=== PATIENT | male | born 1965 | race Caucasian/White ===

== ENCOUNTER 2016-09-06 14:17 | Outpatient (CLI) | payer BC | END 2016-09-06 14:18 | disposition home or self-care (01) | DX: G47.8 Other sleep disorders (principal); R06.83 Snoring ==

== ENCOUNTER 2016-11-01 14:46 | Outpatient (CLI) | payer BC | END 2016-11-01 14:47 | disposition home or self-care (01) | DX: G47.33 Obstructive sleep apnea (adult) (pediatric) (principal) ==

== ENCOUNTER 2017-01-22 15:49 | Outpatient (CLI) | payer BC | END 2017-01-22 15:50 | disposition home or self-care (01) | LOC: SC 15:49 | PROVIDERS: ATTEND Nurse Practitioner Family | DX: G47.33 Obstructive sleep apnea (adult) (pediatric) (principal) | CPT/HCPCS: 99212; 99214 ==

== ENCOUNTER 2017-02-28 10:16 | Outpatient (CLI) | payer BC ==
[2017-02-28 17:59] LABS: ALBUMIN/GLOBULIN RATIO 1.6 (1.0-2.2); BILIRUBIN,TOTAL 0.5 mg/dL (0.2-1.0); BUN - BLOOD UREA NITROGEN 16 mg/dL (6-20); CALCIUM 8.6 mg/dL (8.5-10.3); CARBON DIOXIDE - CO2 26 mmol/L (21-32); CHLORIDE 103 mmol/L (101-111); CHOL/HDL RATIO 5.4 (<5.0); CHOLESTEROL 146 mg/dL; CREATININE 0.7 mg/dL (0.6-1.2); GFR - MDRD 120 (>89); GLUCOSE 272 mg/dL (70-100); HDL CHOLESTEROL 27 mg/dL; LDL/HDL RATIO 3.3 (<3.6); POTASSIUM 4.1 mmol/L (3.5-5.0); SODIUM 135 mmol/L (135-145); TOTAL PROTEIN 6.7 g/dL (6.7-8.2); TRIGLYCERIDES 151 mg/dL; VLDL CHOLESTEROL 30 mg/dL
[2017-02-28 18:00] LABS: HEMOGLOBIN A1C 1.01 g/dL
== END 2017-02-28 10:17 | disposition home or self-care (01) ==
LOC: LAB.F 10:16
PROVIDERS: ATTEND Physician Assistant Medical
DX: I10 Essential (primary) hypertension (principal); E78.5 Hyperlipidemia, unspecified
CPT/HCPCS: 36415; 80053; 80061; 83036

== ENCOUNTER 2017-03-07 15:55 | Outpatient (CLI) | payer BC | END 2017-03-07 15:56 | disposition home or self-care (01) | LOC: SC 15:55 | PROVIDERS: ATTEND Nurse Practitioner Family | DX: G47.33 Obstructive sleep apnea (adult) (pediatric) (principal); G47.00 Insomnia, unspecified | CPT/HCPCS: 99212; 99214 ==

== ENCOUNTER 2017-04-11 15:51 | Outpatient (CLI) | payer BC | END 2017-04-11 15:52 | disposition home or self-care (01) | LOC: SC 15:51 | PROVIDERS: ATTEND Nurse Practitioner Family | DX: G47.33 Obstructive sleep apnea (adult) (pediatric) (principal) | CPT/HCPCS: 99212; 99214 ==

== ENCOUNTER 2017-09-24 12:45 | Outpatient (CLI) | payer BC ==
[2017-09-24 18:01] LABS: HB2 TOTAL 14.7 g/dL; HEMOGLOBIN A1C 0.8 g/dL; HEMOGLOBIN A1C % 7.1 % (4.6-6.2)
== END 2017-09-24 12:46 | disposition home or self-care (01) ==
LOC: LAB.F 12:45
PROVIDERS: ATTEND Physician Assistant Medical
DX: E11.9 Type 2 diabetes mellitus without complications (principal)
CPT/HCPCS: 36415; 83036

== ENCOUNTER 2018-03-08 02:50 | Outpatient (CLI) | payer BC | END 2018-03-08 02:51 | disposition critical access hospital (66) | LOC: EMS 02:50 | PROVIDERS: ATTEND Surgery | DX: T39.312A Poisoning by propionic acid derivatives, intentional self-harm, initial encounter (principal); R46.4 Slowness and poor responsiveness; Y92.009 Unspecified place in unspecified non-institutional (private) residence as the place of occurrence of the external cause | CPT/HCPCS: A0425; A0427 ==

== ENCOUNTER 2018-03-08 03:29 | Observation (INO) | payer BC ==
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
[2018-03-08] MEDS ORDERED: SODIUM CHLORIDE 0.9% 1,000 ML IV ONE ×3 (03:43→09:47)
[2018-03-08 03:48] LABS: MUDS CUTOFF CONCENTRATIONS CUTOFF CONC BELOW:
[2018-03-08 04:06] LABS: AMPHETAMINE SCREEN,URINE NEGATIVE (NEGATIVE); BENZODIAZEPINES SCREEN, URINE NEGATIVE (NEGATIVE); COCAINE SCREEN URINE NEGATIVE (NEGATIVE); METHADONE SCREEN, URINE NEGATIVE (NEGATIVE); METHAMPHETAMINES SCREEN, URINE NEGATIVE (NEGATIVE); OPIATE SCREEN, URINE POSITIVE (NEGATIVE); OXYCODONE SCREEN, URINE NEGATIVE (NEGATIVE); PROPOXYPHENE SCREEN, URINE NEGATIVE (NEGATIVE); TRICYCLIC ANTIDEPRESSANT,URINE NEGATIVE (NEGATIVE)
[2018-03-08 04:07] LABS: BASOPHILS % (AUTO) 0.5 %; EOSINOPHILS % (AUTO) 1.1 %; HGB - HEMOGLOBIN 13.1 g/dL (14.0-18.0); LYMPHOCYTES # (AUTO) 0.9 10^3/uL (1.5-3.5); LYMPHOCYTES % (AUTO) 27.8 %; MEAN CORPUSCULAR HEMOGLOBIN 32.4 pg (27.0-31.0); MEAN CORPUSCULAR HGB CONC 34.7 g/dL (32.0-36.0); MEAN CORPUSCULAR VOLUME 93.4 fL (80.0-94.0); MEAN PLATELET VOLUME 8.3 fL (7.4-11.4); MONOCYTES # (AUTO) 0.2 10^3/uL (0.0-1.0); MONOCYTES % (AUTO) 6.8 %; NEUTROPHILS # (AUTO) 2.1 10^3/uL (1.5-6.6); NEUTROPHILS % (AUTO) 63.8 %; PLT - PLATELET COUNT 138 10^3/uL (130-450); RED BLOOD COUNT 4.04 10^6/uL (4.70-6.10); RED CELL DISTRIBUTION WIDTH 13.1 % (12.0-15.0); WHITE BLOOD COUNT 3.2 x10^3/uL (4.8-10.8)
[2018-03-08 04:26] LABS: ACETAMINOPHEN 34 ug/mL (10-30); ALBUMIN 4.2 g/dL (3.2-5.5); ALBUMIN/GLOBULIN RATIO 1.4 (1.0-2.2); ALKALINE PHOSPHATASE 80 IU/L (42-121); ALT ALANINE AMINOTRANSFERASE 77 IU/L (10-60); AST ASPARTATE AMINOTRANSFERASE 34 IU/L (10-42); BILIRUBIN,TOTAL 0.7 mg/dL (0.2-1.0); BUN - BLOOD UREA NITROGEN 14 mg/dL (6-20); CALCIUM 8.9 mg/dL (8.5-10.3); CARBON DIOXIDE - CO2 21 mmol/L (21-32); CHLORIDE 101 mmol/L (101-111); CREATININE 0.7 mg/dL (0.6-1.2); GFR - MDRD 119 (>89); GLUCOSE 294 mg/dL (70-100); LIPASE 32 U/L (22-51); SALICYLATE < 6.0 mg/dL; SODIUM 134 mmol/L (135-145); TOTAL PROTEIN 7.1 g/dL (6.7-8.2)
[2018-03-08] MEDS ORDERED: INSULIN REGULAR HUMAN 100 UNIT/1 ML 10 ML MDV IVP STA (06:11)
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
[2018-03-08] MEDS ORDERED: ONDANSETRON 4 MG/2 ML VIAL IVP PRN (12:05)
[2018-03-08] MEDS ORDERED: SODIUM CHLORIDE FLUSH 0.9% 10 ML SYRINGE IVP PRN (12:05)
[2018-03-08 13:26] LABS: ABG BASE EXCESS -5.3 mmol/L (-2.0-3.0); ABG HCO3 22.7 mmol/L (22.0-26.0); ABG OXYGEN SATURATION 92 % (94-98); ABG PCO2 55 mmHg (34-45); ABG PH 7.24 (7.35-7.45); ABG PO2 71 mmHg (80-100); ABG TCO2 24.4 MMOL/L (21.0-29.0); ALLEN TEST POSITIVE
[2018-03-08] MEDS ORDERED: NALOXONE 0.4 MG/ML VIAL IVP ONE (13:31)
[2018-03-08] MEDS: SODIUM CHLORIDE 0.9% 1,000 ML IV SCH (13:51)
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
[2018-03-08 14:49] LABS: ABG PCO2 55 mmHg (34-45); ABG PH 7.27 (7.35-7.45)
[2018-03-08 14:53] LABS: ABG BASE EXCESS -3.1 mmol/L (-2.0-3.0); ABG HCO3 24.5 mmol/L (22.0-26.0); ABG PO2 36 mmHg (80-100); ABG TCO2 26.2 MMOL/L (21.0-29.0)
[2018-03-08 14:54] LABS: ALLEN TEST POSITIVE
--- NOTE | 2018-03-08 15:13 | XRAY Report ---
Reason: sob, ams, Procedure Date: 03/08/2018 Accession Number: [id number] / [id number] Procedure: XR - Chest 1 View X-Ray CPT Code: 89705 FULL RESULT: EXAM: CHEST RADIOGRAPHY EXAM DATE: 03/08/2018 02:41 PM. CLINICAL HISTORY: Sob, ams. COMPARISON: 01/06/2013 chest x-ray TECHNIQUE: 1 view. FINDINGS: Lungs/Pleura: No focal opacities evident. No pleural effusion. No pneumothorax. Mediastinum: Within exam limitations, the cardiomediastinal contour is normal. Other: No acute findings compared with 01/06/2013 IMPRESSION: Negative portable chest. RAD[facility]
[2018-03-08 15:31] LABS: ABG PCO2 47 mmHg (34-45); ABG PH 7.29 (7.35-7.45)
[2018-03-08 15:32] LABS: ABG BASE EXCESS -4.3 mmol/L (-2.0-3.0); ABG HCO3 22.4 mmol/L (22.0-26.0); ABG OXYGEN SATURATION 96 % (94-98); ABG PO2 94 mmHg (80-100); ABG TCO2 23.8 MMOL/L (21.0-29.0); ALLEN TEST POSITIVE
[2018-03-08 16:02] LABS: ABG OXYGEN SATURATION 64 % (94-98)
[2018-03-08] MEDS: INSULIN ASPART 300 UNIT/3 ML PEN SUBQ SCH ×2 (16:29→21:02)
[2018-03-08] MEDS: SODIUM CHLORIDE FLUSH 0.9% 10 ML SYRINGE IVP SCH (16:47)
[2018-03-08 18:37] LABS: HB2 TOTAL 13.1 g/dL; HEMOGLOBIN A1C % 9.1 % (4.6-6.2)
--- NOTE | 2018-03-08 19:18 | PROVIDER PROGRESS NOTE ---
Hospitalist Cross-cover Note - Cross-Cover Note Cross-Cover Note: March 08, 2018 7:13 PM The patient was transferred to the unit because he was excessively sleepy during the day. He was felt to be snoring, possibly to have tended to protect his own airway. He would wake up with sternal rub. Go right back to sleep. We did a blood gas and his pH was 7.29, PCO2 47, and PO2 was 94. She had a mild metabolic acidosis with his hyperglycemia. His glycosylated hemoglobin ended up being 9.1%. Once he was in the ICU, he is slowly been waking up. By 630 this evening he is upright in bed, watching TV, and eating a full dinner. His temperature is 36.5 , pulse 108, blood pressure 152/97. He is breathing at 18 breaths a minute. 100% saturated on room air. He is a lean lanky white male. Alert and oriented to person place and time. Again, watching TV in controlling the remote quite nicely. Neck is supple. Lungs are clear to auscultation and percussion. PMI is normally placed. The abdomen is soft and nontender with normal bowel sounds. His extremities have no clubbing cyanosis or edema. He can do finger to nose cerebellar testing normally. Rapid alternating hand movement is normal. Strength in the hands, arms, legs and plantar dorsiflexion of the feet are normal. Assessment/plan metabolic encephalopathy due to polysubstance drug use. He had taken Advil PM, [place], and alcohol after an argument with his . He was in the emergency room for 8 hours. Tylenol level was reducing. They asked us to admit him for a few hours to let him wake up. Initially he was still quite sleepy. This resulted in a transfer to ICU. Now he is awake and alert. He also tells us that this was not a suicide attempt. He does not want to . Has no plans on time. Sometimes he gets distracted, he gets sleepy, and he forgets that he is taken pills and takes too many pills at once. At this time he is cleared for his medical problems. The only thing outstanding is diabetes mellitus for which she does not take very good care of himself. Nevertheless he can resume his usual medications of metformin and glipizide for that. [facility] If [facility] feels the patient is not a threat to himself he can go home. If not, he may need transfer to inpatient psych facility.
[2018-03-08] MEDS ORDERED: LISINOPRIL 5 MG TABLET PO SCH (21:00)
[2018-03-09] MEDS: SODIUM CHLORIDE 0.9% 1,000 ML IV SCH (00:05)
[2018-03-09 04:58] LABS: BASOPHILS % (AUTO) 0.2 %; EOSINOPHILS % (AUTO) 0.8 %; HGB - HEMOGLOBIN 12.3 g/dL (14.0-18.0); LYMPHOCYTES # (AUTO) 1.2 10^3/uL (1.5-3.5); LYMPHOCYTES % (AUTO) 19.8 %; MEAN CORPUSCULAR HEMOGLOBIN 32.1 pg (27.0-31.0); MEAN CORPUSCULAR HGB CONC 34.1 g/dL (32.0-36.0); MEAN CORPUSCULAR VOLUME 94.1 fL (80.0-94.0); MEAN PLATELET VOLUME 8.2 fL (7.4-11.4); MONOCYTES # (AUTO) 0.4 10^3/uL (0.0-1.0); MONOCYTES % (AUTO) 6.7 %; NEUTROPHILS # (AUTO) 4.3 10^3/uL (1.5-6.6); NEUTROPHILS % (AUTO) 72.5 %; PLT - PLATELET COUNT 131 10^3/uL (130-450); RED BLOOD COUNT 3.82 10^6/uL (4.70-6.10); RED CELL DISTRIBUTION WIDTH 13.3 % (12.0-15.0); WHITE BLOOD COUNT 5.9 x10^3/uL (4.8-10.8)
[2018-03-09 05:08] LABS: ALBUMIN 3.9 g/dL (3.2-5.5); ALBUMIN/GLOBULIN RATIO 1.5 (1.0-2.2); ALKALINE PHOSPHATASE 50 IU/L (42-121); ALT ALANINE AMINOTRANSFERASE 60 IU/L (10-60); AST ASPARTATE AMINOTRANSFERASE 21 IU/L (10-42); BILIRUBIN,TOTAL 0.6 mg/dL (0.2-1.0); BUN - BLOOD UREA NITROGEN 12 mg/dL (6-20); CALCIUM 8.7 mg/dL (8.5-10.3); CARBON DIOXIDE - CO2 27 mmol/L (21-32); CHLORIDE 103 mmol/L (101-111); CREATININE 0.8 mg/dL (0.6-1.2); GFR - MDRD 102 (>89); GLUCOSE 142 mg/dL (70-100); MAGNESIUM 1.9 mg/dL (1.7-2.8); SODIUM 138 mmol/L (135-145); TOTAL PROTEIN 6.5 g/dL (6.7-8.2)
[2018-03-09 05:09] LABS: ACETAMINOPHEN < 10 ug/mL (10-30)
[2018-03-09] MEDS: SODIUM CHLORIDE FLUSH 0.9% 10 ML SYRINGE IVP SCH (05:33)
--- NOTE | 2018-03-09 07:27 | Discharge Plan ---
Discharge Plan Disposition: 01 Home, Self Care Condition: Stable Diet: Regular Activity Restrictions: Activity as Tolerated Shower Restrictions: No Driving Restrictions: No Additional Instructions or Follow Up instructions: You were placed in the hospital for observation because of severe sleepiness, very slow moving. We initially were observing you for an attempted suicide attempt with taking Advil, [place], and then drinking alcohol on top of that. You were in the emergency room for close to 8 hours. We were hoping you would wake up to then be evaluated by mental health provider to decide if you needed to go to an inpatient psychiatric facility. You were not able to wake up and as such you were transferred into the hospital for continued observation. For a while you was so sleepy that you would stop breathing. You do have obstructive sleep apnea but did not have your CPAP machine with you. We then transferred to the ICU to monitor you. Within minutes of going to the ICU, you woke up. You started eating your dinner. You were appropriate for the rest of the evening on. You were evaluated by mental health professional from the [facility]. They felt that you did not meet criteria for involuntary treatment, as danger to self, danger to property, danger to others, or grave disability. You are now discharged to home. Please follow-up with your primary care provider in the next 1-2 weeks. You may need to be referred for re -evaluation for obstructive sleep apnea. We strongly suggest that you stop drinking. We also strongly suggest that you seek support to stop drinking such as with Alcoholics Anonymous. Do not ever drink and drive. If you smoke we strongly suggest to stop smoking. We also suggest that you seek a mental health professional for counseling. No Smoking: If you smoke, Please STOP! Call for help. Follow-up with: Paola Glaser PA-C [Provider Admit Priv/Credential] -
[2018-03-09] MEDS: INSULIN ASPART 300 UNIT/3 ML PEN SUBQ SCH (08:53)
[2018-03-09] MEDS ORDERED: POLYETHYLENE GLYCOL 3350 17 GM PACKET PO SCH (09:00)
[2018-03-09] MEDS ORDERED: ENOXAPARIN 40 MG/0.4 ML SYRINGE SUBQ SCH (09:00)
[2018-03-09] MEDS ORDERED: FAMOTIDINE 20 MG TABLET PO SCH (09:00)
[2018-03-09 09:30] VITALS: BP 127/81
--- NOTE | 2018-03-10 10:40 | XRAY Report ---
Reason: ABDOMINAL DISTENTION, SHORT OF BREATH Procedure Date: 03/08/2018 Accession Number: [id number] / [id number] Procedure: XR - Abdomen 2 View X-Ray CPT Code: 14561 FULL RESULT: EXAM: ABDOMEN RADIOGRAPHY EXAM DATE: 03/08/2018 04:57 PM. CLINICAL HISTORY: ABDOMINAL DISTENTION, SHORT OF BREATH. COMPARISON: 03/08/2018. TECHNIQUE: 2 views. FINDINGS: Lung Bases: Unremarkable. Bowel Gas Pattern: Within normal limits. No dilated loops or abnormal fluid levels. Moderate stool in the ascending and transverse colon. Free Air: None. Other: None. IMPRESSION: No evidence for free air or small bowel obstruction. Moderate stool in the ascending and transverse colon. RADIA
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
== END 2018-03-09 09:49 | disposition home or self-care (01) ==
LOC: EDUNIT# → ED 03:29 → MS2 12:05 → ICU 15:04
PROVIDERS: ADMIT Nurse Practitioner Gerontology; ATTEND Nurse Practitioner Gerontology
DX: T39.1X4A Poisoning by 4-Aminophenol derivatives, undetermined, initial encounter (principal); T40.2X4A Poisoning by other opioids, undetermined, initial encounter; T39.314A Poisoning by propionic acid derivatives, undetermined, initial encounter; T51.94XA Toxic effect of unspecified alcohol, undetermined, initial encounter; R53.83 Other fatigue; Y92.019 Unspecified place in single-family (private) house as the place of occurrence of the external cause; E11.65 Type 2 diabetes mellitus with hyperglycemia; Z79.84 Long term (current) use of oral hypoglycemic drugs; I50.22 Chronic systolic (congestive) heart failure; G47.33 Obstructive sleep apnea (adult) (pediatric); G92 Toxic encephalopathy
CPT/HCPCS: 36415; 36600; 71045; 74019; 80053; 80306; 80307; 80320; 80329; 82803; 83036; 83690; 83735; 85025; 87150; 93005; 93306; 96360; 96361; 99285; A9270; G0378; J1815

== ENCOUNTER 2018-07-03 15:48 | Outpatient (CLI) | payer BC, OTHER | END 2018-07-03 15:49 | disposition home or self-care (01) | LOC: SC 15:48 | PROVIDERS: ATTEND Nurse Practitioner Family | DX: G47.33 Obstructive sleep apnea (adult) (pediatric) (principal); G47.00 Insomnia, unspecified | CPT/HCPCS: 99212; 99214 ==

== ENCOUNTER 2018-08-20 10:33 | Outpatient (CLI) | payer OTHER | END 2018-08-20 10:34 | disposition home or self-care (01) | LOC: SC 10:33 | PROVIDERS: ATTEND Nurse Practitioner Family | DX: Z53.9 Procedure and treatment not carried out, unspecified reason (principal) ==